=== PATIENT | male | born 1990 | race Hispanic/Latino ===

== ENCOUNTER 2017-12-21 23:06 | Emergency (ER) | payer OTHER ==
[~2017-12-21] VITALS: Ht 165.1 cm; Wt 86.6 kg
--- NOTE | 2017-12-21 23:54 | ED NECK/BACK PAIN COMPLAINT ---
History of Present Illness General Chief Complaint: Low Back Pain/Injury Stated Complaint: ?MUSCLE PULLED IN LOWER BACK Source: patient Exam Limitations: no limitations Vital Signs & Intake/Output Vital Signs & Intake/Output Vital Signs Date Time Temp Pulse Resp B/P B/P Pulse O2 O2 Flow FiO2 Mean Ox Delivery Rate 12/22 0005 99 Room Air 12/21 2315 98.6 69 18 113/75 98 Room Air ED Intake and Output 12/22 0000 12/21 1200 Intake Total Output Total Balance Patient 191 lb Weight Allergies Coded Allergies: NO KNOWN ALLERGIES (10/08/14) Reconcile Medications No Known Home Medications Triage Note: 27M WITH LOW BACK PAIN, ON AND OFF "FOR A WHILE" AND WAS LAYING DOWN AND TWISTED AND FELT A PINCH AND HAS HAD TERRIBLE PAIN SINCE. TOOK IBUPROFEN WITHOUT RELIEF. PAIN 8/10 AT THIS TIME. DEPENDING ON MOVEMENT, PAIN CAN SHOOT UP HIS BACK AND DOWN BOTH LEGS. AMBULATORY, DENIES LOSS OF B/B. DENIES SYMPTOMS Triage Nurses Notes Reviewed? yes Onset: Gradual Duration: hour(s):, constant, changing over time, continues in ED, getting worse Quality/Severity: moderate, severe Location: bilateral lumbar Radiation: 1 brief episode of radiation to the right thigh Method of Injury: waterpark HPI: Patient presents for evaluation of bilateral low back pain. Patient has had back problems for close to 2 years. He states he felt a pinch while he was recreating in a waterpark. That seemed to improve but then got worse today. It is a pinching pain that gets worse with movement, particularly twisting getting off the couch and with bending over. He took 400 mg of ibuprofen with improvement although still feels a considerable amount of pain. He denies urinary or fecal incontinence or urinary retention. He likewise denies saddle paresthesias. Past History Travel History Traveled to [place] past 21 day No Medical History Any Pertinent Medical History? see below for history Neurological: NONE EENT: NONE Cardiovascular: NONE Respiratory: NONE Gastrointestinal: NONE Hepatic: NONE Renal: NONE Musculoskeletal: chronic back pain Psychiatric: NONE Endocrine: NONE Blood Disorders: NONE Cancer(s): NONE MAORI PHYSIOTHERAPIST/Reproductive: NONE Surgical History Surgical History: non-contributory Psychosocial History What is your primary language Telugu Tobacco Use: Never used Family History Hx Contributory? No Review of Systems Review of Systems Constitutional: Reports: no symptoms. Eyes: Reports: no symptoms. Ears, Nose, Throat, Mouth: Reports: no symptoms. Respiratory: Reports: no symptoms. Cardiovascular: Reports: no symptoms. Gastrointestinal/Abdominal: Reports: no symptoms. Musculoskeletal: Reports: see HPI. Skin: Reports: no symptoms. Neurological/Psychological: Reports: no symptoms. All Other Systems: Reviewed and Negative Physical Exam Physical Exam Neck: see below Comments: Gen.: Well-nourished, well-developed, no acute respiratory distress. Mild to moderate distress while at rest secondary to back pain. Pain worsens with movement. Head: Normocephalic, atraumatic. Eyes: Normal inspection bilaterally Ears: Normal inspection bilaterally Nose: Normal inspection Throat/mouth : Moist mucosa Neck: Supple, full range of motion, no goiter Lungs: Quiet respirations Back: Decreased range of motion secondary to pain. No Tenderness over the lumbosacral spine, no soft tissue swelling ecchymoses or erythema. Extremities: lower extremities: No straight leg raise sign, sensation intact bilaterally with no saddle paresthesias, deep tendon reflexes normal bilaterally , sensation to light touch intact bilaterally. Neurologic: Cranial nerves grossly intact, speech is clear Skin: warm and dry Psychiatric: Calm, cooperative, no apparent delusions or hallucinations Core Measures CVA/TIA Diagnosis: No Progress Differential Diagnosis: cauda equina syn, herniated disc, myofascial strain, sciatica Plan of Care: Current Medications Sig/Zoya Start time Last Medication Dose Stop Time Status Admin Cyclobenzaprine HCl 10 MG ONCE ONE 12/21 2344 UNVr (Flexeril 10MG Tab) 12/21 2345 Ketorolac 60 MG ONCE ONE 12/21 2344 UNVr Tromethamine 12/21 2345 (Toradol) Comments: Patient denies cancer unexplained weight loss or immunosuppression, denies IV drug abuse urinary tract infection or recent trauma. Denies pain increased by rest or associated fever. Denies bowel or bladder incontinence or urinary retention. Denies saddle paresthesias or major motor weakness. 12/22/2017 12:43:16 AM per patient's nerves, Angelo is asleep. Departure Departure Disposition: HOME OR SELF CARE Condition: Stable Clinical Impression Primary Impression: Low back strain Qualifiers: Encounter type: initial encounter Qualified Code: S39.012A - Strain of muscle, fascia and tendon of lower back, initial encounter Referrals: Marychuy Enciso MD (PCP/Family) Additional Instructions: Rest, no exertion or heavy lifting. Ketorolac as needed for pain, orphenadrine as needed for spasms. Follow-up with your primary care physician if not improving in one week. Return if any concerns or sudden worsening. Thank you for choosing the [facility] for your care. It was a pleasure to serve you today. Margarito Miner M.D. [facility] Departure Forms: Customer Survey General Discharge Information Prescriptions: Current Visit Scripts Ketorolac Tromethamine 1 TAB PO Q6P PRN back pain #16 TAB patient received IM ketorolac in the emergency department Orphenadrine Citrate 1 TAB PO BIDP PRN muscle spasms #20 TAB
[2017-12-22] MEDS ORDERED: ORPHENADRINE C100 MG PO (00:46)
[2017-12-22] MEDS ORDERED: KETOROLAC TROME10 M1 PO (00:46)
[2017-12-22 01:02] VITALS: BP 116/79
== END 2017-12-22 01:02 ==
LOC: ERH 23:06
DX: S39.012A Strain of muscle, fascia and tendon of lower back, initial encounter (principal); X58.XXXA Exposure to other specified factors, initial encounter; Y93.9 Activity, unspecified; Y92.831 Amusement park as the place of occurrence of the external cause
CPT/HCPCS: 96372; J1885